=== PATIENT | female | born 1990 | race African-American/Black ===

== ENCOUNTER 2021-06-06 13:13 | Inpatient (IN) | payer MEDICAID, OTHER ==
[~2021-06-06] VITALS: Ht 167.6 cm; Wt 74.8 kg
[2021-06-06] VITALS (8 sets, daily range): BP systolic 117–125; BP diastolic 60–80
[2021-06-06] MEDS ORDERED: ASPIRIN 325MG TABLET ONE (14:22)
[2021-06-06] MEDS ORDERED: HEPARIN 1000 UNITS/ML 10ML ONE (14:32)
[2021-06-06] MEDS ORDERED: FENTANYL CITRATE/PF 50MCG/ML 2ML VIAL ONE (14:32)
[2021-06-06] MEDS ORDERED: MIDAZOLAM HCL 2 MG/2 ML VIAL ONE ×2 (14:32→14:54)
[2021-06-06] MEDS ORDERED: LIDOCAINE HCL 1% 10 MG/ML 10ML VIAL ONE (14:33)
[2021-06-06] MEDS ORDERED: IOHEXOL-300 100 ML BOTTLE ONE (14:33)
[2021-06-06] MEDS ORDERED: IODIXANOL 320MG/ML 100 ML BOTTLE IV ONE (14:33)
[2021-06-06 14:34] LABS: BASOPHILS % 0.9 % (0.0-2.0); EOSINOPHILS % 0.8 % (0.0-5.0); HEMATOCRIT. 46.7 % (36.0-48.0); HEMOGLOBIN. 15.5 g/dL (12.0-16.0); LYMPHOCYTES % 34.6 % (20.0-50.0); MEAN CORPUSCULAR HEMOGLOBIN 30.5 pg (28.0-32.0); MEAN CORPUSCULAR VOLUME 91.8 fL (81.0-99.0); MEAN PLATELET VOLUME 8.1 fl (7.4-10.4); NEUTROPHILS % 55.7 % (40.0-76.0); PLATELET 375 x1000/uL (130-400); RED BLOOD CELL COUNT 5.08 mill/uL (4.2-5.4)
[2021-06-06 14:37] LABS: CHLORIDE 104 mEq/L (98-107)
[2021-06-06] MEDS ORDERED: VERAPAMIL HCL 2.5 MG/1 ML 2ML VIAL IV ONE (14:38)
[2021-06-06 14:43] LABS: ETHANOL BLOOD < 10 mg/dL
[2021-06-06 14:44] LABS: HCG SCREEN NEGATIVE
[2021-06-06] MEDS ORDERED: ATROPINE SULFATE 0.1MG/ML 10ML DISP.SYRIN ONE (15:00)
[2021-06-06] MEDS ORDERED: ACETAMINOPHEN 325MG TABLET PO PRN (15:30)
[2021-06-06] MEDS ORDERED: ATROPINE SULFATE 1MG/10ML SYR IV PRN (15:30)
[2021-06-06] MEDS ORDERED: ASPIRIN 325MG EC TABLET PO ONE ×2 (17:00)
[2021-06-06] MEDS ORDERED: ZYDS20 MT (17:20)
[2021-06-06 19:42] LABS: CHLORIDE 108 mEq/L (98-107)
== END 2021-06-06 23:05 | disposition left against medical advice (07) | DRG 190 ==
LOC: ER 13:13 → 3WST 16:29 → EDBEDREQ 16:31 → EDBEDREQTM 16:31 → ER 16:53
PROVIDERS: ADMIT Internal Medicine; ATTEND Internal Medicine
PROC: B211YZZ Fluoroscopy of Multiple Coronary Arteries using Other Contrast (ICD-10-PCS; principal; 2021-06-06)
PROC: 4A023N7 Measurement of Cardiac Sampling and Pressure, Left Heart, Percutaneous Approach (ICD-10-PCS; 2021-06-06)
PROC: B34HZZZ Ultrasonography of Right Upper Extremity Arteries (ICD-10-PCS; 2021-06-06)
DX: I21.19 ST elevation (STEMI) myocardial infarction involving other coronary artery of inferior wall (principal); F17.210 Nicotine dependence, cigarettes, uncomplicated; I21.09 ST elevation (STEMI) myocardial infarction involving other coronary artery of anterior wall; I25.10 Atherosclerotic heart disease of native coronary artery without angina pectoris; Z53.29 Procedure and treatment not carried out because of patient's decision for other reasons; Z20.822 Contact with and (suspected) exposure to COVID-19; F20.9 Schizophrenia, unspecified; Z82.49 Family history of ischemic heart disease and other diseases of the circulatory system
CPT/HCPCS: 36415; 80048; 80053; 80320; 83880; 84484; 84703; 85025; 87426; 93005; 93458; 99291; C1769; C1887; C1893; J0461; J1644; J2250; J3010; J3490; Q9967; G0480